=== PATIENT | female | born 1950 | race Caucasian/White ===

== ENCOUNTER 2017-08-22 15:16 | Emergency (ER) | payer MEDICARE, MEDICAID ==
[~2017-08-22] VITALS: Ht 165.1 cm; Wt 81.6 kg
[2017-08-22 15:25] VITALS: BP 141/65
[2017-08-22 15:45] LABS: APPEARANCE,URINE Slightly Cloudy (CLEAR); BILIRUBIN,URINE Negative (NEGATIVE); BLOOD, URINE Large Ery/uL (NEGATIVE); COLOR,URINE Yellow (YELLOW); KETONES,URINE Negative (NEGATIVE); LEUKOCYTE ESTERASE ,URINE Small (NEGATIVE); NITRITE, URINE Negative (NEGATIVE); PH,URINE 6.5 (5.0-8.0); PROTEIN,URINE 100 mg/dl (NEGATIVE); UGLUCOSE Negative (NEGATIVE); UROBILINOGEN,URINE 0.2 EU/dL (0.2)
[2017-08-22 16:08] LABS: RBC,URINE TOO NUMEROUS TO COUN /HPF (0-2)
[2017-08-22 16:09] LABS: BACTERIA,URINE Few /HPF (None Seen); SQUAMOUS EPITHELIAL CELL,UR Few /HPF (None Seen)
== END 2017-08-22 17:26 | disposition home or self-care (01) ==
LOC: ER 15:17
DX: R31.9 Hematuria, unspecified (principal); I10 Essential (primary) hypertension; E11.9 Type 2 diabetes mellitus without complications; F41.9 Anxiety disorder, unspecified
CPT/HCPCS: 81001; 87077; 87086; 87186; 99284; A4606; 81000-TC; Z7610

== ENCOUNTER 2018-02-16 02:59 | Emergency (ER) | payer MEDICARE, MEDICAID ==
[~2018-02-16] VITALS: Ht 165.1 cm; Wt 103.9 kg
[2018-02-16 03:00] VITALS: BP 165/71
== END 2018-02-16 03:49 | disposition home or self-care (01) ==
LOC: ER 03:03
DX: F41.9 Anxiety disorder, unspecified (principal); I10 Essential (primary) hypertension; E11.9 Type 2 diabetes mellitus without complications
CPT/HCPCS: 99284; A4606; Z7610

== ENCOUNTER 2018-08-30 02:54 | Emergency (ER) | payer MEDICARE, MEDICAID ==
[~2018-08-30] VITALS: Ht 167.6 cm; Wt 101.6 kg
--- NOTE | 2018-08-30 03:05 | NUR ---
PT BIBHUSBAND COMPLAINING OF HIGH BLOOD PRESSURE READING AT HOME. PT ALSO COMPLAINING OF HEADACHE AND FEELING LIGHTHEADED. PT AAOX4. RESPIRATIONS EVEN AND UNLABORED. SKIN WARM AND INTACT. NO ACUTE DISTRESS NOTED. PT PLACED IN GOWN AND ON CONTINUOUS PURCHASING EXPEDITOR
--- NOTE | 2018-08-30 03:07 | NUR ---
MD AT BEDSIDE FOR EVALUATION
[2018-08-30] MEDS ORDERED: CLONIDINE HCL 0.1 MG TABLET ONE (03:23)
[2018-08-30] MEDS ORDERED: CLONIDINE HCL 0.1 MG TABLET PO ONE (03:30)
[2018-08-30 03:44] LABS: APPEARANCE,URINE CLEAR (CLEAR); BILIRUBIN,URINE NEGATIVE (NEGATIVE); BLOOD, URINE 1+ Ery/uL (NEGATIVE); COLOR,URINE OTHER (YELLOW); KETONES,URINE NEGATIVE (NEGATIVE); LEUKOCYTE ESTERASE ,URINE TRACE (NEGATIVE); NITRITE, URINE NEGATIVE (NEGATIVE); PH,URINE 6.5 (5.0-8.0); PROTEIN,URINE NEGATIVE (NEGATIVE); UGLUCOSE NEGATIVE (NEGATIVE); UROBILINOGEN,URINE 0.2 EU/dL (0.2)
[2018-08-30] MEDS ORDERED: ENOXAPARIN SODIUM 60 MG/0.6 ML DISP.SYRIN SQ ONE ×2 (03:45→04:00)
[2018-08-30] MEDS ORDERED: ENOXAPARIN SODIUM 40 MG/0.4 ML DISP.SYRIN SQ ONE (03:45)
[2018-08-30 03:59] LABS: BACTERIA,URINE Few /HPF (None Seen); SQUAMOUS EPITHELIAL CELL,UR Few /HPF (None Seen); WBC,URINE 21-50 /HPF (0-3)
--- NOTE | 2018-08-30 04:19 | NUR ---
Patient discharged to home in stable condition. Written and verbal after care instructions given. Patient verbalizes understanding of instruction. Pt ambulatory with a steady gait
[2018-08-30 04:21] VITALS: BP 149/87
== END 2018-08-30 04:22 | disposition home or self-care (01) ==
LOC: ER 02:58
DX: F41.9 Anxiety disorder, unspecified (principal); I10 Essential (primary) hypertension; I48.91 Unspecified atrial fibrillation; E11.9 Type 2 diabetes mellitus without complications
CPT/HCPCS: 81000-TC; 87086-TC; 87186-TC; A6403; J1650

== ENCOUNTER 2018-12-07 08:02 | Emergency (ER) | payer MEDICARE, MEDICAID ==
[~2018-12-07] VITALS: Ht 172.7 cm; Wt 97.5 kg
--- NOTE | 2018-12-07 08:05 | NUR ---
TO ER BED 2,CHANGED INTO GOWN,MONITOR,AWAITING MD HELTON
--- NOTE | 2018-12-07 08:15 | NUR ---
DR ANGELES AT BEDSIDE
--- NOTE | 2018-12-07 08:25 | NUR ---
BLOOD DRAWN AND SENT TO LAB
[2018-12-07] MEDS ORDERED: ONDANSETRON HCL/PF 4 MG/2 ML VIAL IVP ONE (08:30)
[2018-12-07] MEDS ORDERED: FAMOTIDINE/PF INJ 20 MG/2 ML VIAL IV ONE ×2 (08:30→08:45)
[2018-12-07] MEDS ORDERED: MORPHINE SULFATE INJ 2 MG/ML DISP.SYRIN IV ONE (08:30)
[2018-12-07] MEDS ORDERED: IV NS 0.9% 1,000 ML BAG IV ONE (08:30)
[2018-12-07 08:31] LABS: BASOPHILS % (AUTO) 0.5 % (0.0-2.0); EOSINOPHILS % (AUTO) 2.6 % (0.0-6.0); HEMATOCRIT 39 % (33-45); HEMOGLOBIN 12.5 g/dL (11.5-14.8); LYMPHOCYTES # (AUTO) 2.2 /CMM (0.8-4.8); MEAN CORPUSCULAR HGB CONC 32 g/dl (31.0-36.0); MEAN CORPUSCULAR VOLUME 86 fL (82-100); MONOCYTES # (AUTO) 0.6 /CMM (0.1-1.30); MONOCYTES % (AUTO) 7.5 % (2.0-12.0); NEUTROPHILS # (AUTO) 4.4 /CMM (1.8-8.9); NEUTROPHILS % (AUTO) 59.4 % (43.0-81.0); PLATELET COUNT (AUTO) 214 /CMM (150-450); WHITE BLOOD COUNT (AUTO) 7.4 K/uL (4.3-11.0)
[2018-12-07 08:36] LABS: CALCIUM, SERUM 9.1 mg/dL (8.5-10.1); POTASSIUM 4.8 mmol/L (3.5-5.1)
[2018-12-07 08:42] LABS: ALBUMIN 3.6 g/dL (3.4-5.0); BILIRUBIN,DIRECT 0.1 mg/dL (0.0-0.2); BILIRUBIN,TOTAL 0.3 mg/dL (0.2-1.0); TOTAL PROTEIN, SERUM 7.5 g/dL (6.4-8.2)
[2018-12-07] MEDS ORDERED: ONDANSETRON HCL/PF 4 MG/2 ML VIAL ONE (08:45)
[2018-12-07] MEDS ORDERED: MORPHINE SULFATE INJ 4 MG/ML DISP.SYRIN ONE (08:45)
[2018-12-07 08:56] LABS: APPEARANCE,URINE Cloudy (CLEAR); BILIRUBIN,URINE Negative (NEGATIVE); BLOOD, URINE Large Ery/uL (NEGATIVE); COLOR,URINE Yellow (YELLOW); KETONES,URINE Negative (NEGATIVE); LEUKOCYTE ESTERASE ,URINE Small (NEGATIVE); NITRITE, URINE Negative (NEGATIVE); PH,URINE 7.5 (5.0-8.0); PROTEIN,URINE Trace mg/dl (NEGATIVE); UGLUCOSE Negative (NEGATIVE); UROBILINOGEN,URINE 0.2 EU/dL (0.2)
[2018-12-07 09:08] LABS: SQUAMOUS EPITHELIAL CELL,UR Few /HPF (None Seen)
[2018-12-07 09:09] LABS: RBC,URINE TOO NUMEROUS TO COUN /HPF (0-2)
[2018-12-07 09:10] LABS: BACTERIA,URINE None seen /HPF (None Seen)
--- NOTE | 2018-12-07 09:41 | NUR ---
IV removed. Catheter intact and site benign. Pressure and 4x4 applied to site. No bleeding noted.Patient discharged to home in stable condition. Written and verbal after care instructions given. Patient verbalizes understanding of instruction.
[2018-12-07 09:44] VITALS: BP 138/90
== END 2018-12-07 09:46 | disposition home or self-care (01) ==
LOC: ER 08:04
DX: N39.0 Urinary tract infection, site not specified (principal); R10.32 Left lower quadrant pain; I10 Essential (primary) hypertension; E11.9 Type 2 diabetes mellitus without complications; I25.10 Atherosclerotic heart disease of native coronary artery without angina pectoris
CPT/HCPCS: 36415; 74176; 80048; 80076; 81001; 83690; 84703; 85025; 87077; 87086; 87186; 96374; 96375; 99284; J2270; J2405; J3490; J7030; 81000-TC

== ENCOUNTER 2018-12-13 21:27 | Emergency (ER) | payer MEDICARE, MEDICAID ==
[~2018-12-13] VITALS: Ht 167.6 cm; Wt 99.8 kg
[2018-12-13 22:01] VITALS: BP 174/91
--- NOTE | 2018-12-13 22:15 | NUR ---
PT HYPERTENSIVE ON THE MONITOR. PT STATES SHE TAKE HER HTN MEDICATION AT HOME AT 2230 AND WILL TAKE IT WHEN SHE GOES HOME. ER PA AWARE.
== END 2018-12-13 22:30 | disposition home or self-care (01) ==
LOC: ER 21:31
DX: I10 Essential (primary) hypertension (principal); I25.10 Atherosclerotic heart disease of native coronary artery without angina pectoris; F41.9 Anxiety disorder, unspecified; E11.9 Type 2 diabetes mellitus without complications

== ENCOUNTER 2019-03-27 03:30 | Emergency (ER) | payer MEDICARE, MEDICAID ==
[~2019-03-27] VITALS: Ht 167.6 cm; Wt 102.1 kg
--- NOTE | 2019-03-27 03:45 | NUR ---
BIB FOR C/O VAGINAL BLEEDING
[2019-03-27] MEDS ORDERED: IV NS 0.9% 1,000 ML BAG IV ONE (04:00)
--- NOTE | 2019-03-27 04:17 | NUR ---
URINE COLLECTED AND SENT TO THE LAB
[2019-03-27 04:29] LABS: CALCIUM, SERUM 9.2 mg/dL (8.5-10.1); POTASSIUM 4.1 mmol/L (3.5-5.1)
[2019-03-27 04:33] LABS: BASOPHILS % (AUTO) 0.6 % (0.0-2.0); EOSINOPHILS % (AUTO) 2.1 % (0.0-6.0); HEMATOCRIT 38 % (33-45); HEMOGLOBIN 12.6 g/dL (11.5-14.8); LYMPHOCYTES # (AUTO) 2.9 /CMM (0.8-4.8); LYMPHOCYTES % (AUTO) 40.9 % (20.0-44.0); MEAN CORPUSCULAR HGB CONC 34 g/dl (31.0-36.0); MEAN CORPUSCULAR VOLUME 86 fL (82-100); MONOCYTES # (AUTO) 0.6 /CMM (0.1-1.30); MONOCYTES % (AUTO) 8.3 % (2.0-12.0); NEUTROPHILS # (AUTO) 3.5 /CMM (1.8-8.9); NEUTROPHILS % (AUTO) 48.1 % (43.0-81.0); PLATELET COUNT (AUTO) 217 /CMM (150-450); RED BLOOD CELL COUNT(AUTO) 4.36 MIL/uL (4.0-5.2); WHITE BLOOD COUNT (AUTO) 7.2 K/uL (4.3-11.0)
[2019-03-27 04:35] LABS: APPEARANCE,URINE Slightly Cloudy (CLEAR); BILIRUBIN,URINE Negative (NEGATIVE); BLOOD, URINE Large Ery/uL (NEGATIVE); COLOR,URINE Red (YELLOW); KETONES,URINE Negative (NEGATIVE); LEUKOCYTE ESTERASE ,URINE Trace (NEGATIVE); NITRITE, URINE Negative (NEGATIVE); PROTEIN,URINE 100 mg/dl (NEGATIVE); UGLUCOSE Negative (NEGATIVE); UROBILINOGEN,URINE 0.2 EU/dL (0.2)
[2019-03-27 04:35] LABS: ALBUMIN 3.5 g/dL (3.4-5.0); BILIRUBIN,DIRECT 0.1 mg/dL (0.0-0.2); BILIRUBIN,TOTAL 0.2 mg/dL (0.2-1.0); TOTAL PROTEIN, SERUM 7.6 g/dL (6.4-8.2)
[2019-03-27] MEDS ORDERED: METOPROLOL TARTRATE 25 MG TABLET PO ONE (05:00)
[2019-03-27] MEDS ORDERED: METOPROLOL TARTRATE 50 MG TABLET ONE (05:02)
[2019-03-27 05:07] LABS: BACTERIA,URINE Few /HPF (None Seen); RBC,URINE TOO NUMEROUS TO COUN /HPF (0-2); SQUAMOUS EPITHELIAL CELL,UR Few /HPF (None Seen)
[2019-03-27] MEDS ORDERED: LORAZEPAM INJ 2 MG/ML VIAL ONE (05:22)
[2019-03-27] MEDS ORDERED: LORAZEPAM INJ 2 MG/ML VIAL IV ONE (05:30)
--- NOTE | 2019-03-27 05:30 | NUR ---
US TECH AT THE BED SIDE
[2019-03-27] MEDS ORDERED: CEFTRIAXONE 1 G in IV D5W 50 ML IV ONE (06:00)
[2019-03-27] MEDS ORDERED: CEFTRIAXONE 1GM BAG (ER ONLY) 50 ML IV ONE (06:05)
--- NOTE | 2019-03-27 06:05 | NUR ---
END TIME FOR ROCEPHINE: 0635
--- NOTE | 2019-03-27 06:31 | NUR ---
.IV removed. Catheter intact and site benign. Pressure and 4x4 applied to site. No bleeding noted. Patient discharged to home in stable condition. Rx and Written and verbal after care instructions given. Patient verbalizes understanding of instruction. will provide ride.
[2019-03-27 06:34] VITALS: BP 158/89
== END 2019-03-27 06:35 | disposition home or self-care (01) ==
LOC: ER 03:33
DX: N39.0 Urinary tract infection, site not specified (principal); I10 Essential (primary) hypertension; F41.9 Anxiety disorder, unspecified; I25.10 Atherosclerotic heart disease of native coronary artery without angina pectoris; I48.91 Unspecified atrial fibrillation; E11.9 Type 2 diabetes mellitus without complications; Z85.3 Personal history of malignant neoplasm of breast; Z98.890 Other specified postprocedural states
CPT/HCPCS: 36415; 76856 ×2; 80048; 80076; 81001; 85025; 85730; 87086; 96365; 96375; 99284; J0696; J2060; J7030; J7060; 81000-TC; 87186-TC

== ENCOUNTER 2019-04-24 20:36 | Emergency (ER) | payer MEDICARE, MEDICAID ==
[~2019-04-24] VITALS: Ht 167.6 cm; Wt 99.8 kg
--- NOTE | 2019-04-24 20:46 | NUR ---
BIB FAMILY FOR C/O ANXIETY AND PALPITATION. - CP. -SOB. PLACED ON A MONITOR.
[2019-04-24 21:26] LABS: BASOPHILS % (AUTO) 0.5 % (0.0-2.0); EOSINOPHILS % (AUTO) 2.1 % (0.0-6.0); HEMATOCRIT 41 % (33-45); HEMOGLOBIN 13.4 g/dL (11.5-14.8); LYMPHOCYTES # (AUTO) 1.6 /CMM (0.8-4.8); LYMPHOCYTES % (AUTO) 26.8 % (20.0-44.0); MEAN CORPUSCULAR HGB CONC 33 g/dl (31.0-36.0); MEAN CORPUSCULAR VOLUME 86 fL (82-100); MONOCYTES # (AUTO) 0.5 /CMM (0.1-1.30); NEUTROPHILS # (AUTO) 3.7 /CMM (1.8-8.9); NEUTROPHILS % (AUTO) 61.6 % (43.0-81.0); PLATELET COUNT (AUTO) 219 /CMM (150-450); RED BLOOD CELL COUNT(AUTO) 4.72 MIL/uL (4.0-5.2); WHITE BLOOD COUNT (AUTO) 5.9 K/uL (4.3-11.0)
[2019-04-24] MEDS ORDERED: LORAZEPAM 1 MG TABLET PO ONE (21:30)
[2019-04-24] MEDS ORDERED: LORAZEPAM 1 MG TABLET ONE (21:30)
[2019-04-24 21:43] LABS: CALCIUM, SERUM 10.2 mg/dL (8.5-10.1); CARBON DIOXIDE 28 mmol/L (21-32); CHLORIDE 102 mmol/L (98-107); GLUCOSE 127 mg/dL (74-106); POTASSIUM 3.8 mmol/L (3.5-5.1); SODIUM SERUM 138 mmol/L (136-145); UREA NITROGEN, BLOOD 15 mg/dL (7-18)
[2019-04-24 21:49] LABS: ALANINE AMINOTRANSFERASE 47 U/L (12-78); ALBUMIN 3.9 g/dL (3.4-5.0); ALKALINE PHOSPHATASE 72 U/L (46-116); ASPARTATE AMINOTRANSFERASE 29 U/L (15-37); BILIRUBIN,DIRECT 0.1 mg/dL (0.0-0.2); BILIRUBIN,TOTAL 0.4 mg/dL (0.2-1.0); TOTAL PROTEIN, SERUM 8.1 g/dL (6.4-8.2)
[2019-04-24 23:22] VITALS: BP 144/87
== END 2019-04-24 23:22 | disposition home or self-care (01) ==
LOC: ER 20:38
DX: F41.9 Anxiety disorder, unspecified (principal); I48.91 Unspecified atrial fibrillation; R79.89 Other specified abnormal findings of blood chemistry; I10 Essential (primary) hypertension; I25.10 Atherosclerotic heart disease of native coronary artery without angina pectoris; E11.9 Type 2 diabetes mellitus without complications; Z72.820 Sleep deprivation; Z98.890 Other specified postprocedural states; Z85.3 Personal history of malignant neoplasm of breast
CPT/HCPCS: 36415; 71045-TC; 80048-TC; 80076-TC; 83880; 84484-TC; 85025-TC

== ENCOUNTER 2020-03-31 18:39 | Emergency (ER) | payer MEDICARE, OTHER ==
[~2020-03-31] VITALS: Ht 167.6 cm; Wt 106.6 kg
[2020-03-31 18:48] VITALS: BP 151/83
--- NOTE | 2020-03-31 18:55 | NUR ---
URINE SPECIMEN COLLECTED AND SENT TO LAB.
[2020-03-31 19:04] LABS: APPEARANCE,URINE Clear (CLEAR); BILIRUBIN,URINE Negative (NEGATIVE); BLOOD, URINE Small Ery/uL (NEGATIVE); COLOR,URINE Yellow (YELLOW); KETONES,URINE Negative (NEGATIVE); LEUKOCYTE ESTERASE ,URINE Trace (NEGATIVE); NITRITE, URINE Negative (NEGATIVE); PH,URINE 6.5 (5.0-8.0); PROTEIN,URINE Negative (NEGATIVE); UGLUCOSE Negative (NEGATIVE); UROBILINOGEN,URINE 0.2 EU/dL (0.2)
--- NOTE | 2020-03-31 19:04 | NUR ---
Transfer care to yary MONTERROSO
[2020-03-31 19:13] LABS: BACTERIA,URINE 1+ /HPF (None Seen); SQUAMOUS EPITHELIAL CELL,UR Few /HPF (None Seen)
--- NOTE | 2020-03-31 19:35 | NUR ---
Patient discharged to home in stable condition. Written and verbal after care instructions given. Patient verbalizes understanding of instruction.pt. ambulatory with a steady gait
== END 2020-03-31 19:35 | disposition home or self-care (01) ==
LOC: ER 18:39
DX: N39.0 Urinary tract infection, site not specified (principal); I10 Essential (primary) hypertension; I25.10 Atherosclerotic heart disease of native coronary artery without angina pectoris; I48.91 Unspecified atrial fibrillation; E11.9 Type 2 diabetes mellitus without complications; Z98.890 Other specified postprocedural states
CPT/HCPCS: 81000-TC; 87086-TC; 87186-TC

== ENCOUNTER 2020-06-06 12:12 | Emergency (ER) | payer MEDICARE, OTHER ==
[~2020-06-06] VITALS: Ht 167.6 cm; Wt 101.2 kg
[2020-06-06 13:11] LABS: BASOPHILS % (AUTO) 0.4 % (0.0-2.0); HEMATOCRIT 38 % (33-45); HEMOGLOBIN 12.3 g/dL (11.5-14.8); LYMPHOCYTES # (AUTO) 1.1 /CMM (0.8-4.8); LYMPHOCYTES % (AUTO) 15.4 % (20.0-44.0); MEAN CORPUSCULAR HGB CONC 33 g/dl (31.0-36.0); MEAN CORPUSCULAR VOLUME 88 fL (82-100); MONOCYTES # (AUTO) 0.6 /CMM (0.1-1.30); MONOCYTES % (AUTO) 9.2 % (2.0-12.0); NEUTROPHILS # (AUTO) 5.2 /CMM (1.8-8.9); PLATELET COUNT (AUTO) 204 /CMM (150-450); RED BLOOD CELL COUNT(AUTO) 4.28 MIL/uL (4.0-5.2)
--- NOTE | 2020-06-06 13:14 | NUR ---
"Cough last couple days - started having pain in chest". PT AAOX4, VSS. RR EVEN & UNLABORED. DENIES DIZZINESS, N/V, WEAKNESS AT THIS TIME. PT SEEN & EVAL'D BY DR. KAUR. WILL CONT TO MONITOR.
[2020-06-06 13:21] LABS: CALCIUM, SERUM 9.3 mg/dL (8.5-10.1); CARBON DIOXIDE 28 mmol/L (21-32); CHLORIDE 100 mmol/L (98-107); GLUCOSE 140 mg/dL (74-106); POTASSIUM 4.2 mmol/L (3.5-5.1); SODIUM SERUM 136 mmol/L (136-145); UREA NITROGEN, BLOOD 9 mg/dL (7-18)
[2020-06-06] MEDS ORDERED: FAMO40TA7 PO (13:31)
[2020-06-06] MEDS ORDERED: NEBI10TA2 PO (13:31)
[2020-06-06] MEDS ORDERED: LOSA100T31 PO (13:31)
[2020-06-06] MEDS ORDERED: PANT40TA49 PO (13:31)
[2020-06-06] MEDS ORDERED: METF-440 PO (13:31)
[2020-06-06] MEDS ORDERED: APIX5TAB PO (13:31)
[2020-06-06] MEDS ORDERED: AMIO100T4 PO (13:31)
[2020-06-06 13:37] LABS: ALANINE AMINOTRANSFERASE 19 U/L (12-78); ALBUMIN 3.4 g/dL (3.4-5.0); ALKALINE PHOSPHATASE 65 U/L (46-116); ASPARTATE AMINOTRANSFERASE 19 U/L (15-37); B-TYPE NATRIURETIC PEPTIDE 2281 PG/ML (0-125); BILIRUBIN,TOTAL 0.9 mg/dL (0.2-1.0); TOTAL PROTEIN, SERUM 8.1 g/dL (6.4-8.2)
--- NOTE | 2020-06-06 14:52 | NUR ---
Patient discharged to home in stable condition. Written and verbal after care instructions given. Patient verbalizes understanding of instruction. IV removed. Catheter intact and site benign. Pressure and 4x4 applied to site. No bleeding noted.
[2020-06-06 14:53] VITALS: BP 146/80
[2020-06-06 15:02] LABS: C-REACTIVE PROTEIN 5.7 mg/dL (0.0-0.9); CREATINE KINASE, TOTAL 45 U/L (26-192); FERRITIN 133 ng/mL (8-388)
== END 2020-06-06 14:58 | disposition home or self-care (01) ==
LOC: ER 12:14
DX: R05 Cough (principal); I11.9 Hypertensive heart disease without heart failure; I25.10 Atherosclerotic heart disease of native coronary artery without angina pectoris; I48.91 Unspecified atrial fibrillation; Z79.01 Long term (current) use of anticoagulants; Z85.3 Personal history of malignant neoplasm of breast; Z79.899 Other long term (current) drug therapy; Z20.828 Contact with and (suspected) exposure to other viral communicable diseases; R79.89 Other specified abnormal findings of blood chemistry; E11.9 Type 2 diabetes mellitus without complications; Z79.84 Long term (current) use of oral hypoglycemic drugs
CPT/HCPCS: 36415; 71045-TC; 80053-TC; 82550-TC; 82728-TC; 83615-TC; 83880; 84484-TC; 85025-TC; 85378-TC; 85730-TC; 86140-TC; C9803-CS; U0003-CS

== ENCOUNTER 2020-08-13 01:59 | Emergency (ER) | payer MEDICARE, OTHER ==
[~2020-08-13] VITALS: Ht 172.7 cm; Wt 97.5 kg
[~2020-08-13 01:59] MED LIST: AMIO100T4 PO; APIX5TAB PO; FAMO40TA7 PO; LOSA100T31 PO; METF-440 PO; NEBI10TA2 PO; PANT40TA49 PO
[2020-08-13 02:00] VITALS: BP 153/83
== END 2020-08-13 02:19 | disposition home or self-care (01) ==
LOC: ER 02:01
DX: I10 Essential (primary) hypertension (principal); I25.10 Atherosclerotic heart disease of native coronary artery without angina pectoris; I48.91 Unspecified atrial fibrillation; E11.9 Type 2 diabetes mellitus without complications; Z98.890 Other specified postprocedural states; Z79.899 Other long term (current) drug therapy; Z79.84 Long term (current) use of oral hypoglycemic drugs

== ENCOUNTER 2020-11-01 20:22 | Inpatient (IN) | payer MEDICARE, OTHER ==
[~2020-11-01] VITALS: Ht 167.6 cm; Wt 91.6 kg
--- NOTE | 2020-11-01 20:25 | NUR ---
PT BIBSELF C/O MIDSTERNAL CHEST PAIN. PT STATES PAIN OCCURED AFTER HAVING AN ARGUMENT, PAIN DESCRIBED PRESSURE AND SIMILAR TO PRIOR EPISODES OF ANXIETY. PT ALSO C/O SOB AND HEADACHE. NOTED HYPERTENSION, MD AWARE. PT AAOX4. RESPIRATIONS EVEN AND UNLABORED. NO ACUTE DISTRESS NOTED AT THIS TIME. PLACED IN GOWN AND ON CONTINUOUS SCRATCH FINISHER AND PULSE OX, WILL CONTINUE TO MONITOR.
[2020-11-01] MEDS ORDERED: LORAZEPAM 1 MG TABLET ONE (20:47)
[2020-11-01 20:59] LABS: BASOPHILS % (AUTO) 0.4 % (0.0-2.0); EOSINOPHILS % (AUTO) 1.4 % (0.0-6.0); HEMATOCRIT 38 % (33-45); HEMOGLOBIN 12.2 g/dL (11.5-14.8); LYMPHOCYTES # (AUTO) 1.9 /CMM (0.8-4.8); LYMPHOCYTES % (AUTO) 26.1 % (20.0-44.0); MEAN CORPUSCULAR HGB CONC 32 g/dl (31.0-36.0); MEAN CORPUSCULAR VOLUME 86 fL (82-100); MONOCYTES # (AUTO) 0.5 /CMM (0.1-1.30); MONOCYTES % (AUTO) 7.2 % (2.0-12.0); NEUTROPHILS # (AUTO) 4.6 /CMM (1.8-8.9); NEUTROPHILS % (AUTO) 64.9 % (43.0-81.0); PLATELET COUNT (AUTO) 217 /CMM (150-450); RED BLOOD CELL COUNT(AUTO) 4.47 MIL/uL (4.0-5.2); WHITE BLOOD COUNT (AUTO) 7.2 K/uL (4.3-11.0)
[2020-11-01] MEDS ORDERED: LORAZEPAM 1 MG TABLET PO ONE (21:00)
[2020-11-01 21:07] LABS: CALCIUM, SERUM 9.6 mg/dL (8.5-10.1); CARBON DIOXIDE 27 mmol/L (21-32); CHLORIDE 100 mmol/L (98-107); GLUCOSE 108 mg/dL (74-106); POTASSIUM 4.5 mmol/L (3.5-5.1); SODIUM SERUM 137 mmol/L (136-145); UREA NITROGEN, BLOOD 14 mg/dL (7-18)
[2020-11-01 21:19] LABS: ALANINE AMINOTRANSFERASE 24 U/L (12-78); ALBUMIN 3.9 g/dL (3.4-5.0); ALKALINE PHOSPHATASE 65 U/L (46-116); ASPARTATE AMINOTRANSFERASE 20 U/L (15-37); B-TYPE NATRIURETIC PEPTIDE 1212 PG/ML (0-125); BILIRUBIN,DIRECT 0.1 mg/dL (0.0-0.2); BILIRUBIN,TOTAL 0.3 mg/dL (0.2-1.0); TOTAL PROTEIN, SERUM 8.2 g/dL (6.4-8.2)
--- NOTE | 2020-11-01 21:21 | NUR ---
RADIOLOGY AT BEDSIDE FOR CXR
--- NOTE | 2020-11-01 21:27 | NUR ---
COVID SWAB COLLECTED, CALLED LAB FOR KNUCKLE STRAP SEWER
[2020-11-01] MEDS ORDERED: MAGNESIUM HYDROXIDE 30 ML UDC PO PRN (21:30)
[2020-11-01] MEDS ORDERED: ONDANSETRON HCL/PF 4 MG/2 ML VIAL IVP PRN (21:30)
[2020-11-01] MEDS ORDERED: ZOLPIDEM TARTRATE 5 MG TABLET PO PRN (21:30)
[2020-11-01] MEDS ORDERED: ACETAMINOPHEN 325 MG TABLET PO PRN (21:30)
[2020-11-01] MEDS ORDERED: MAG HYDROX/AL HYDROX/SIMETH 30 ML UDC PO PRN (21:30)
[2020-11-01] MEDS ORDERED: HYDROCODONE/APAP 5/325MG TABLET PO PRN (21:30)
[2020-11-01] MEDS ORDERED: Z GUARD REMEDY 2 OZ OINT TP PRN (21:30)
[2020-11-01] MEDS ORDERED: NITROGLYCERIN 0.4 MG/TAB BOTTLE SL PRN (21:30)
[2020-11-01] MEDS ORDERED: SIMVASTATIN 20 MG TABLET PO SCH (22:00)
--- NOTE | 2020-11-01 23:12 | NUR ---
REPORT GIVEN TO LOC CLEMONS FOR VERONIKA
--- NOTE | 2020-11-01 23:34 | NUR ---
PT TRANSFERRED TO 309 PER [facility] PROTOCOL
--- NOTE | 2020-11-01 23:35 | NUR ---
PHARMACISTS NOTES PT RECEIVED FROM E.R. STAFF VIA Aubrey, ASSISTED TO BED, MADE COMFORTABLE, PT IS ALERT AND ORIENTED X4, ABLE TO AMBULATE WITH STEADY GAIT. DENIES ANY CHEST PAIN OR DISCOMFORT AT THIS TIME, VERBALIZED HAVING SERIOUS ANXIETY ATTACKS WHICH BEGAN RECENTLY. ORIENTED TO ROOM AND CALL LIGHT SYSTEM. VITAL SIGNS STABLE, BREATHING UNLABORED. PATIENT UPDATED ON PLAN OF CARE AND MEDICATIONS TO BE ADMINISTERED, VERBALIZED UNDERSTANDING AND IS AGREEABLE. INITIAL ASSESSMENT COMPLETED AND DOCUMENTED. PATIENT DECLINED BOTH FLU AND PNEUMONIA VACCINES. NO VOICED NEEDS AT THIS TIME. WILL CONTINUE MONITORING CLOSELY.
[2020-11-01] MEDS ORDERED: ENOXAPARIN SODIUM 40 MG/0.4 ML DISP.SYRIN SQ SCH (23:37)
[2020-11-02] VITALS: BP 146/66
[2020-11-02] MEDS ORDERED: FUROSEMIDE 20 MG/2 ML VIAL IV SCH
[2020-11-02 04:00] VITALS: BP 146/69
--- NOTE | 2020-11-02 05:55 | NUR ---
PATIENT REQUESTING TO BE DISCHARGED IMMEDIATELY, STATES "I HAVE TO BE SOMEWHERE AT 8AM". RN EXPLAINED TO PATIENT THAT SHE HAS A PENDING CARDIOLOGY CONSULT AND CANNOT BE DISCHARGED WITHOUT MD ORDERS. PT REQUESTING TO HAVE IV ACCESS REMOVED, WELL TELE MONITOR. EXPLAINED TO PATIENT THE IMPORTANCE OF KEEPING IV ACCESS WHILE IN THE HOSPITAL, WELL MONITORING HER HEART DUE TO CHEST PAIN DX. PT IS AGREEABLE AT THIS TIME BUT APPEARS IRRITATED. PT REFUSED AM BLOOD DRAW AT THIS TIME, STATES "I HAVE MY OWN DOCTORS, I WILL BE LEAVING THIS MORNING". WILL CONTINUE MONITORING CLOSELY.
--- NOTE | 2020-11-02 06:51 | NUR ---
PATIENT TOOK OFF TELE MONITOR AND STATES HER IS WAITING DOWNSTAIRS TO PICK HER UP. EDUCATED ON RISKS OF LEAVING AMA, PATIENT VERBALIZES UNDERSTANDING. IV REMOVED, DR GONZALEZ NOTIFIED. IV REMOVED, AND ID BAND REMOVED, PATIENT SIGNED AMA FORM AND WALKED OFF THE UNIT.
[2020-11-02] MEDS ORDERED: PANTOPRAZOLE 40 MG TABLET.DR PO SCH ×2 (07:30→09:00)
[2020-11-02] MEDS ORDERED: METFORMIN 500 MG TABLET PO SCH (08:00)
[2020-11-02] MEDS ORDERED: APIXABAN 5 MG TABLET PO SCH (09:00)
[2020-11-02] MEDS ORDERED: ASPIRIN EC 81 MG TABLET.DR PO SCH (09:00)
[2020-11-02] MEDS ORDERED: FAMOTIDINE (20 MG) 20 MG TABLET PO SCH (09:00)
[2020-11-02] MEDS ORDERED: AMIODARONE HCL 200 MG TABLET PO SCH (09:00)
[2020-11-02] MEDS ORDERED: LOSARTAN POTASSIUM 25 MG TABLET PO SCH (09:00)
== END 2020-11-02 06:57 | disposition left against medical advice (07) | DRG 303 ==
LOC: ER 20:22 → TELE 23:16
DX: I25.10 Atherosclerotic heart disease of native coronary artery without angina pectoris (principal); F41.0 Panic disorder [episodic paroxysmal anxiety]; I48.91 Unspecified atrial fibrillation; Z79.01 Long term (current) use of anticoagulants; Z85.3 Personal history of malignant neoplasm of breast; E11.9 Type 2 diabetes mellitus without complications; I50.9 Heart failure, unspecified; I11.0 Hypertensive heart disease with heart failure; Z82.49 Family history of ischemic heart disease and other diseases of the circulatory system; Z20.822 Contact with and (suspected) exposure to COVID-19; Z79.84 Long term (current) use of oral hypoglycemic drugs
CPT/HCPCS: 36415; 71045-TC; 80048-TC; 80076-TC; 83880; 84484-TC; 85025-TC; 87081-TC; C9803; G0378; J1650; J1940

== ENCOUNTER 2024-06-22 06:00 | Emergency (ER) | payer MEDICARE, OTHER ==
[~2024-06-22] VITALS: Ht 167.6 cm; Wt 90.7 kg
[2024-06-22 06:55] LABS: BASOPHILS % (AUTO) 0.5 % (0.0-2.0); EOSINOPHILS # (AUTO) 0.3 K/uL (0.0-0.7); EOSINOPHILS % (AUTO) 3.6 % (0.0-6.0); HEMATOCRIT 36 % (33-45); HEMOGLOBIN 11.6 g/dL (11.5-14.8); LYMPHOCYTES # (AUTO) 2.3 K/uL (0.8-4.8); LYMPHOCYTES % (AUTO) 31.6 % (20.0-44.0); MEAN CORPUSCULAR HEMOGLOBIN 26 PG (26.0-33.0); MEAN CORPUSCULAR HGB CONC 32 g/dl (31.0-36.0); MEAN CORPUSCULAR VOLUME 81 fL (82-100); MONOCYTES # (AUTO) 0.6 K/uL (0.1-1.30); MONOCYTES % (AUTO) 8.4 % (2.0-12.0); NEUTROPHILS # (AUTO) 4.1 K/uL (1.8-8.9); NEUTROPHILS % (AUTO) 55.9 % (43.0-81.0); PLATELET COUNT (AUTO) 223 K/uL (150-450); RED BLOOD CELL COUNT(AUTO) 4.46 MIL/uL (4.0-5.2); RED CELL DISTRIBUTION WIDTH 15.9 % (11.5-15.0); WHITE BLOOD COUNT (AUTO) 7.4 K/uL (4.3-11.0)
[2024-06-22 07:24] LABS: CALCIUM, SERUM 9.5 mg/dL (8.5-10.1); CARBON DIOXIDE 29 mmol/L (21-32); CHLORIDE 103 mmol/L (98-107); CREATININE 0.8 mg/dL (0.6-1.3); GLUCOSE 152 mg/dL (74-106); POTASSIUM 4.6 mmol/L (3.5-5.1); SODIUM SERUM 140 mmol/L (136-145); UREA NITROGEN, BLOOD 13 mg/dL (7-18)
[2024-06-22 07:30] LABS: ALANINE AMINOTRANSFERASE 25 U/L (12-78); ALBUMIN 3.4 g/dL (3.4-5.0); ALKALINE PHOSPHATASE 59 U/L (46-116); ASPARTATE AMINOTRANSFERASE 17 U/L (15-37); BILIRUBIN,TOTAL 0.2 mg/dL (0.2-1.0); LIPASE 37 U/L (16-77); TOTAL PROTEIN, SERUM 7.4 g/dL (6.4-8.2)
[2024-06-22 07:36] VITALS: BP 145/79; TEMP 98; O2SAT 95
== END 2024-06-22 07:37 | disposition left against medical advice (07) ==
LOC: ER 06:05
DX: S09.8XXA Other specified injuries of head, initial encounter (principal); S70.12XA Contusion of left thigh, initial encounter; S00.411A Abrasion of right ear, initial encounter; E11.9 Type 2 diabetes mellitus without complications; I11.0 Hypertensive heart disease with heart failure; I50.9 Heart failure, unspecified; I48.91 Unspecified atrial fibrillation; Z79.01 Long term (current) use of anticoagulants; Z79.84 Long term (current) use of oral hypoglycemic drugs; Z79.899 Other long term (current) drug therapy; Z86.79 Personal history of other diseases of the circulatory system; Z86.59 Personal history of other mental and behavioral disorders; Z85.3 Personal history of malignant neoplasm of breast; W18.2XXA Fall in (into) shower or empty bathtub, initial encounter; Y93.E1 Activity, personal bathing and showering; Y92.091 Bathroom in other non-institutional residence as the place of occurrence of the external cause; Y99.8 Other external cause status
CPT/HCPCS: 36415; 80053-TC; 83690-TC; 85025-TC

== ENCOUNTER 2024-11-21 03:04 | Emergency (ER) | payer MEDICARE, OTHER ==
[~2024-11-21] VITALS: Ht 167.6 cm; Wt 95.3 kg
[2024-11-21 03:42] VITALS: TEMP 97.6
[2024-11-21] MEDS ORDERED: MECLIZINE HCL 25 MG TABLET ONE (04:16)
[2024-11-21] MEDS ORDERED: ONDANSETRON HCL/PF 4 MG/2 ML VIAL ONE (04:16)
[2024-11-21] MEDS: MECLIZINE HCL 12.5 MG TABLET PO ONE (04:21)
[2024-11-21] MEDS: ONDANSETRON HCL/PF 4 MG/2 ML VIAL IVP ONE (04:21)
[2024-11-21 04:26] LABS: BASOPHILS # (AUTO) 0.1 K/uL (0.0-0.2); BASOPHILS % (AUTO) 1.3 % (0.0-2.0); EOSINOPHILS # (AUTO) 0.1 K/uL (0.0-0.7); EOSINOPHILS % (AUTO) 0.9 % (0.0-6.0); HEMATOCRIT 40 % (33-45); HEMOGLOBIN 12.9 g/dL (11.5-14.8); LYMPHOCYTES # (AUTO) 2.3 K/uL (0.8-4.8); LYMPHOCYTES % (AUTO) 34.1 % (20.0-44.0); MEAN CORPUSCULAR HEMOGLOBIN 27 PG (26.0-33.0); MEAN CORPUSCULAR HGB CONC 33 g/dl (31.0-36.0); MEAN CORPUSCULAR VOLUME 82 fL (82-100); MONOCYTES # (AUTO) 0.6 K/uL (0.1-1.30); MONOCYTES % (AUTO) 9.3 % (2.0-12.0); NEUTROPHILS # (AUTO) 3.7 K/uL (1.8-8.9); NEUTROPHILS % (AUTO) 54.4 % (43.0-81.0); PLATELET COUNT (AUTO) 242 K/uL (150-450); RED BLOOD CELL COUNT(AUTO) 4.83 MIL/uL (4.0-5.2); RED CELL DISTRIBUTION WIDTH 16.7 % (11.5-15.0); WHITE BLOOD COUNT (AUTO) 6.9 K/uL (4.3-11.0)
[2024-11-21 04:35] LABS: CALCIUM, SERUM 10.1 mg/dL (8.5-10.1); CREATININE 1.1 mg/dL (0.6-1.3); POTASSIUM 4.4 mmol/L (3.5-5.1)
[2024-11-21 04:41] LABS: ALBUMIN 3.6 g/dL (3.4-5.0); BILIRUBIN,DIRECT 0.1 mg/dL (0.0-0.2); BILIRUBIN,TOTAL 0.3 mg/dL (0.2-1.0); TOTAL PROTEIN, SERUM 7.9 g/dL (6.4-8.2)
[2024-11-21 04:42] LABS: INR 1.02 (0.91-1.10); PARTIAL THROMBOPLASTIN TIME 28.2 SEC (24.3-34.3); PROTHROMBIN TIME 10.8 SECS (9.2-11.1)
[2024-11-21] MEDS: IV NS 0.9% 1,000 ML BAG IV ONE (05:24)
[2024-11-21 05:26] VITALS: BP 144/80; O2SAT 94
== END 2024-11-21 05:26 | disposition left against medical advice (07) ==
LOC: ER 03:16
DX: R42 Dizziness and giddiness (principal); E11.9 Type 2 diabetes mellitus without complications; I10 Essential (primary) hypertension; Z79.01 Long term (current) use of anticoagulants; Z79.84 Long term (current) use of oral hypoglycemic drugs; Z79.899 Other long term (current) drug therapy; Z82.49 Family history of ischemic heart disease and other diseases of the circulatory system; Z85.3 Personal history of malignant neoplasm of breast
CPT/HCPCS: 99284; 96374; 93005; 85025; 80048; 80076; 36415; 85730; J8597; J2405

== ENCOUNTER 2024-12-14 12:55 | Emergency (ER) | payer MEDICARE, OTHER ==
[~2024-12-14] VITALS: Ht 167.6 cm; Wt 102.5 kg
[2024-12-14] MEDS: IV NS 0.9% 500 ML BAG IV ONE (13:30)
[2024-12-14 13:48] LABS: BASOPHILS % (AUTO) 0.4 % (0.0-2.0); EOSINOPHILS # (AUTO) 0.1 K/uL (0.0-0.7); EOSINOPHILS % (AUTO) 2.4 % (0.0-6.0); HEMATOCRIT 39 % (33-45); HEMOGLOBIN 12.9 g/dL (11.5-14.8); LYMPHOCYTES # (AUTO) 1.5 K/uL (0.8-4.8); MEAN CORPUSCULAR HEMOGLOBIN 27 PG (26.0-33.0); MEAN CORPUSCULAR HGB CONC 33 g/dl (31.0-36.0); MEAN CORPUSCULAR VOLUME 83 fL (82-100); MONOCYTES # (AUTO) 0.8 K/uL (0.1-1.30); MONOCYTES % (AUTO) 12.7 % (2.0-12.0); NEUTROPHILS # (AUTO) 3.8 K/uL (1.8-8.9); NEUTROPHILS % (AUTO) 60.5 % (43.0-81.0); PLATELET COUNT (AUTO) 220 K/uL (150-450); RED BLOOD CELL COUNT(AUTO) 4.77 MIL/uL (4.0-5.2); RED CELL DISTRIBUTION WIDTH 15.5 % (11.5-15.0); WHITE BLOOD COUNT (AUTO) 6.3 K/uL (4.3-11.0)
[2024-12-14 13:57] LABS: CALCIUM, SERUM 9.9 mg/dL (8.5-10.1); CREATININE 0.8 mg/dL (0.6-1.3); POTASSIUM 4.3 mmol/L (3.5-5.1)
[2024-12-14 14:02] LABS: PARTIAL THROMBOPLASTIN TIME 27.9 SEC (24.3-34.3); PROTHROMBIN TIME 10.6 SECS (9.2-11.1)
[2024-12-14] MEDS ORDERED: IOHEXOL-300 100 ML VIAL IV ONE (14:27)
[2024-12-14] MEDS ORDERED: IV NS 0.9% 250 ML IV ONE (14:28)
[2024-12-14] MEDS ORDERED: LIDO30AD10 TP (16:19)
[2024-12-14] MEDS ORDERED: ACET-2605 PO (16:19)
[2024-12-14] MEDS ORDERED: CYCL5TAB PO (16:19)
[2024-12-14 16:29] VITALS: BP 141/81; TEMP 97.6; O2SAT 99
== END 2024-12-14 16:30 | disposition home or self-care (01) ==
LOC: ER 14:13
DX: S20.212A Contusion of left front wall of thorax, initial encounter (principal); I11.9 Hypertensive heart disease without heart failure; E11.9 Type 2 diabetes mellitus without complications; I48.91 Unspecified atrial fibrillation; E04.1 Nontoxic single thyroid nodule; Z79.01 Long term (current) use of anticoagulants; Z79.84 Long term (current) use of oral hypoglycemic drugs; Z79.899 Other long term (current) drug therapy; Z85.3 Personal history of malignant neoplasm of breast; W01.0XXA Fall on same level from slipping, tripping and stumbling without subsequent striking against object, initial encounter; Y93.89 Activity, other specified; Y92.89 Other specified places as the place of occurrence of the external cause; Y99.8 Other external cause status
CPT/HCPCS: 99285; 71260; 74177; 85025; 80048; 36415; 85730; 86850; J7050; J7040; Q9967

== ENCOUNTER 2025-08-27 13:31 | Emergency (ER) | payer MEDICARE, OTHER ==
[~2025-08-27] VITALS: Ht 167.6 cm; Wt 99.8 kg
[~2025-08-27 13:31] MED LIST changes: +ACET-2605 PO; +CYCL5TAB PO; +LIDO30AD10 TP
[2025-08-27 14:46] VITALS: TEMP 98.4
[2025-08-27] MEDS ORDERED: HYDROCODONE/APAP 5/325MG TABLET ONE (17:01)
[2025-08-27] MEDS: HYDROCODONE/APAP 5/325MG TABLET PO ONE (17:04)
[2025-08-27 17:55] VITALS: BP 135/85; O2SAT 97
== END 2025-08-27 17:56 | disposition home or self-care (01) ==
LOC: ER 13:35
DX: S92.911A Unspecified fracture of right toe(s), initial encounter for closed fracture (principal); I11.9 Hypertensive heart disease without heart failure; E11.9 Type 2 diabetes mellitus without complications; Z79.01 Long term (current) use of anticoagulants; Z79.84 Long term (current) use of oral hypoglycemic drugs; Z79.899 Other long term (current) drug therapy; Z90.11 Acquired absence of right breast and nipple; W22.8XXA Striking against or struck by other objects, initial encounter; Y93.89 Activity, other specified; Y92.89 Other specified places as the place of occurrence of the external cause; Y99.9 Unspecified external cause status
CPT/HCPCS: 73630-TC